=== PATIENT | male | born 1940 | race Caucasian/White ===

== ENCOUNTER 2016-11-04 11:33 | Emergency (ER) | payer OTHER ==
[~2016-11-04 11:33] MED LIST: ANUSOL TOP; ASPIR 8181 MG PO; BIDIL TABLET1 EACH PO; COREG25 MG PO; COUMADIN3 MG PO; COUMADIN4 MG PO; LASIX20 MG PO; PRINIVIL20 MG PO; SYNTHROID88 MCG PO; [UNRECOGNIZED DRUG - OTHER] TOP
== END 2016-11-04 14:20 | disposition short-term general hospital (02) ==
LOC: ER 11:33
DX: J18.1 Lobar pneumonia, unspecified organism (principal); I13.2 Hypertensive heart and chronic kidney disease with heart failure and with stage 5 chronic kidney disease, or end stage renal disease; N18.6 End stage renal disease; I50.9 Heart failure, unspecified; Z99.2 Dependence on renal dialysis; Z79.82 Long term (current) use of aspirin; Z79.01 Long term (current) use of anticoagulants; Z79.899 Other long term (current) drug therapy
CPT/HCPCS: 36415; 96365